=== PATIENT | female | born 1970 | race Caucasian/White ===

== ENCOUNTER 2017-11-18 17:31 | Emergency (ER) | payer OTHER ==
[2017-11-18] MEDS: ONDANSETRON (ODT) 4 MG TAB ODT (19:02)
[2017-11-18] MEDS: FAMOTIDINE 20 MG TAB PO (19:02)
[2017-11-18] MEDS: LIDOCAINE/MYLANTA 40 ML BTL PO (19:02)
[2017-11-18 19:13] LABS: ADD MAN DIFF? NO
[2017-11-18 19:17] LABS: BASOPHIL # 0.1 10^3/ul (0.0-0.1); BASOPHILS % 0.6 % (0.0-2.0); EOSINOPHILS # 0.1 10^3/ul (0.0-0.5); EOSINOPHILS % 0.5 % (0.0-7.0); HEMATOCRIT 40.6 % (37.0-47.0); HEMOGLOBIN 13.8 g/dl (12.0-16.0); LYMPHOCYTES # 2.1 10^3/ul (0.8-2.9); LYMPHOCYTES % 20.9 % (15.0-51.0); MEAN CORPUSCULAR HEMOGLOBIN 27.1 pg (29.0-33.0); MEAN CORPUSCULAR VOLUME 79.8 fl (82.0-101.0); MONOCYTE # 0.5 10^3/ul (0.3-0.9); MONOCYTES % 4.6 % (0.0-11.0); NEUTROPHIL # 7.3 10^3/ul (1.6-7.5); NEUTROPHILS % 72.7 % (39.0-77.0); PLATELET COUNT 401 10^3/UL (140-415); RED BLOOD COUNT 5.09 10^6/ul (4.20-5.40); RED CELL DISTRIBUTION WIDTH 12.8 % (11.5-14.5)
[2017-11-18 19:26] LABS: ADD UMIC NO; UR ASCORBIC ACID NEGATIVE (NEGATIVE); UR BILIRUBIN (Dip) NEGATIVE (NEGATIVE); UR BLOOD (Dip) NEGATIVE (NEGATIVE); UR CLARITY CLEAR (CLEAR); UR COLOR YELLOW (YELLOW); UR GLUCOSE (Dip) 3+ mg/dL (NEGATIVE); UR KETONES (Dip) TRACE mg/dL (NEGATIVE); UR LEUKOCYTE ESTERASE (Dip) NEGATIVE Leu/ul (NEGATIVE); UR NITRITE (Dip) NEGATIVE (NEGATIVE); UR SPECIFIC GRAVITY (Dip) 1.036 (1.003-1.030); UR TOTAL PROTEIN (Dip) NEGATIVE (NEGATIVE); UR UROBILINOGEN (Dip) NEGATIVE (NEGATIVE)
[2017-11-18 19:36] LABS: ALANINE AMINOTRANSFERASE 26 IU/L (13-69); ALBUMIN 4.9 g/dl (3.3-4.9); ALBUMIN/GLOBULIN RATIO 1.08; ALKALINE PHOSPHATASE 100 IU/L (42-121); ANION GAP 18 (8-16); ASPARTATE AMINO TRANSFERASE 18 IU/L (15-46); BILIRUBIN,INDIRECT 0.6 mg/dl (0-1.1); BILIRUBIN,TOTAL 0.6 mg/dl (0.2-1.3); BLOOD UREA NITROGEN 9 mg/dl (7-20); CALCIUM 9.8 mg/dl (8.4-10.2); CARBON DIOXIDE 27 mmol/L (21-31); CHLORIDE 100 mmol/L (97-110); CREATININE 0.49 mg/dl (0.44-1.00); GLUCOSE 311 mg/dl (70-220); POTASSIUM 3.6 mmol/L (3.5-5.1); SODIUM 141 mmol/L (135-144); TOTAL PROTEIN 9.4 g/dl (6.1-8.1)
== END 2017-11-18 20:50 | disposition home or self-care (01) ==
LOC: FTE 17:31
DX: E11.65 Type 2 diabetes mellitus with hyperglycemia (principal)
CPT/HCPCS: 73610; 73610-RT; 80053; 81003; 85025; 99284-25

== ENCOUNTER 2017-11-25 14:28 | Emergency (ER) | payer OTHER ==
[2017-11-25] MEDS: ACETAMINOPHEN 325 MG TAB PO (15:33)
[2017-11-25] MEDS: DIPHTH/TET/ACEL PERTUSS (ADULT) 0.5 ML VIAL IM* (15:34)
== END 2017-11-25 17:11 | disposition home or self-care (01) ==
LOC: FTE 14:28
DX: S61.411A Laceration without foreign body of right hand, initial encounter (principal); E11.9 Type 2 diabetes mellitus without complications; W25.XXXA Contact with sharp glass, initial encounter; Y92.9 Unspecified place or not applicable; Z23 Encounter for immunization
CPT/HCPCS: 73130; 73130-50; 90471; 90715; 99284-25

== ENCOUNTER 2018-05-16 23:35 | Emergency (ER) | payer OTHER ==
[2018-05-17] MEDS: predniSONE 20 MG TAB PO (02:25)
[2018-05-17] MEDS: ACETAMINOPHEN 325 MG TAB PO (02:25)
[2018-05-17] MEDS: DIPHENHYDRAMINE 25 MG CAP PO (02:26)
[2018-05-17] MEDS: RANITIDINE 150 MG TAB PO (02:36)
[2018-05-17 03:09] LABS: ADD UMIC NO; UR ASCORBIC ACID NEGATIVE (NEGATIVE); UR BILIRUBIN (Dip) NEGATIVE (NEGATIVE); UR BLOOD (Dip) NEGATIVE (NEGATIVE); UR CLARITY CLEAR (CLEAR); UR COLOR YELLOW (YELLOW); UR GLUCOSE (Dip) 3+ mg/dL (NEGATIVE); UR KETONES (Dip) NEGATIVE (NEGATIVE); UR LEUKOCYTE ESTERASE (Dip) NEGATIVE Leu/ul (NEGATIVE); UR NITRITE (Dip) NEGATIVE (NEGATIVE); UR TOTAL PROTEIN (Dip) NEGATIVE (NEGATIVE); UR UROBILINOGEN (Dip) 2+ mg/dL (NEGATIVE)
[2018-05-17] MEDS: LACTATED RINGER'S 1,000 ML IV (04:58)
[2018-05-17 05:26] LABS: ANION GAP 9 (5-13); BLOOD UREA NITROGEN 7 mg/dl (7-20); CALCIUM 9.3 mg/dl (8.4-10.2); CARBON DIOXIDE 27 mmol/L (21-31); CHLORIDE 103 mmol/L (97-110); CREATININE 0.47 mg/dl (0.44-1.00); Estimated GFR > 60 mL/min (>60); GLUCOSE 388 mg/dl (70-220); SODIUM 139 mmol/L (135-144)
== END 2018-05-17 06:04 | disposition home or self-care (01) ==
LOC: FTE 23:35
DX: T78.1XXA Other adverse food reactions, not elsewhere classified, initial encounter (principal); E74.39 Other disorders of intestinal carbohydrate absorption; E11.9 Type 2 diabetes mellitus without complications; E03.9 Hypothyroidism, unspecified
CPT/HCPCS: 80048; 81003; 82962; 96360; 99284-25